=== PATIENT | male | born 1955 | race African-American/Black ===

== ENCOUNTER 2022-03-16 22:20 | Emergency (ER) | payer MEDICARE, SELFPAY ==
[~2022-03-16] VITALS: Ht 175.3 cm; Wt 93.0 kg
[2022-03-17] MEDS ORDERED: FAMOTIDINE 20MG TABLET PO ONE
[2022-03-17] MEDS ORDERED: METHYLPREDNISOLONE SOD SUCC 125 MG/2 ML VIAL IM ONE
[2022-03-17] MEDS ORDERED: FAMOTIDINE 20MG TABLET PO NR (02:00)
[2022-03-17] MEDS ORDERED: METHYLPREDNISOLONE SOD SUCC 125 MG/2 ML VIAL IM NR (02:00)
[2022-03-17] MEDS ORDERED: P20 PO (02:04)
[2022-03-17] MEDS ORDERED: FAMO-135 MT (02:04)
[2022-03-17 02:46] VITALS: BP 126/75
== END 2022-03-17 02:45 | disposition home or self-care (01) ==
LOC: ER 22:36
DX: T78.40XA Allergy, unspecified, initial encounter (principal); X58.XXXA Exposure to other specified factors, initial encounter; R21 Rash and other nonspecific skin eruption; J02.9 Acute pharyngitis, unspecified; I10 Essential (primary) hypertension
CPT/HCPCS: 96372; 99283; J2930